=== PATIENT | female | born 1975 | race Caucasian/White ===

== ENCOUNTER 2017-12-30 07:18 | Emergency (ER) | payer OTHER ==
--- NOTE | 2017-12-30 08:00 | ED ---
Back Pain - HPI Summary HPI Summary: CC: Low back pain, b/l leg pain, right arm pain HPI: 42 yo female having months of low back pain and diffuse joint pain. She is being evaluated by Dr Rosales, her PMD for this condition. Here today due to increased constant LBP and several days of worse b/l knee pain and new, intermittent rt leg and arm pain. No rt arm pain now. LBP constant, worse with movement. On Mobic and neurontin for this. The knees continue to hurt. They make grinding noises with movement. No recent locking. No recent injury. Yesterday had increased rt leg pain that spread to the rt arm. No neck pain. No fever. No chest/abd pain. No dysuria. NL BMs. - History of Current Complaint Chief Complaint: EDExtremityLower Stated Complaint: RT SIDE PAIN Time Seen by Provider: 12/30/17 07:32 Hx Obtained From: Patient Hx Last Menstrual Period: 07/30/14 Onset/Duration: Other - See HPI Onset/Duration: Still Present Timing: Lasting Weeks Back Pain Location: Is Discrete @ - Lumbar Severity Currently: Moderate Pain Intensity: 8 Aggravating Symptom(s): Movement, Lifting, Bending, Walking Associated Signs And Symptoms: Positive: Pain with Weight Bearing. Negative: Swelling, Redness, Bruising, Fever, Weakness, Numbness, Tingling, Abdominal Pain , Flank Pain, Bladder Incontinence, Bowel Incontinence, Weight Loss - Risk Factors Cauda Equina Risk Factors: Negative Epidural Abscess Risk Factors: Negative - Allergies/Home Medications Allergies/Adverse Reactions: Allergies Allergy/AdvReac Type Severity Reaction Status Date / Time acetaminophen [From Percocet] Allergy Hives/Diff. Verified 12/30/17 07:26 Breathing/I tching amoxicillin [From Augmentin] Allergy Hives/Diff. Verified 12/30/17 07:26 Breathing/I tching cephalexin [From Keflex] Allergy Hives/Diff. Verified 12/30/17 07:26 Breathing/I tching clavulanic acid Allergy Hives/Diff. Verified 12/30/17 07:26 [From Augmentin] Breathing/I tching erythromycin base Allergy Hives/Diff. Verified 12/30/17 07:26 Breathing/I tching latex Allergy Rash Verified 12/30/17 07:26 levofloxacin [From Levaquin] Allergy Swelling Verified 12/30/17 07:26 Of Face,Lips,& Throat oxycodone [From Percocet] Allergy Hives/Diff. Verified 12/30/17 07:26 Breathing/I tching Penicillins Allergy Hives/Diff. Verified 12/30/17 07:26 Breathing/I tching PMH/Surg Hx/FS Hx/Imm Hx Previously Healthy: No - See HPI Endocrine/Hematology History: Denies: Hx Diabetes, Hx Thyroid Disease Cardiovascular History: Denies: Hx Angina, Hx Cardiomegaly, Hx Congestive Heart Failure, Hx Coronary Artery Disease, Hx Hypertension, Hx Pacemaker/ICD, Hx Peripheral Vascular Disease, Hx Rheumatic Fever, Hx Valvular Heart Disease, Other Cardiovascular Problems/Disorders Respiratory History: Reports: Hx Asthma Denies: Hx Chronic Obstructive Pulmonary Disease (COPD), Hx Pulmonary Edema, Hx Pulmonary Embolism, Hx Sleep Apnea, Other Respiratory Problems/Disorders GI History: Reports: Hx Gastroesophageal Reflux Disease Denies: Hx Ulcer History: Reports: Hx Kidney Stones Denies: Hx Renal Disease Musculoskeletal History: Denies: Hx Arthritis, Hx Rheumatoid Arthritis, Hx Bursitis, Hx Osteoporosis, Hx Tendonitis, Other Musculoskeletal History Sensory History: Denies: Hx Contacts or Glasses, Hx Hearing Aid Opthamlomology History: Denies: Hx Contacts or Glasses Neurological History: Reports: Hx Migraine Denies: Other Neuro Impairments/Disorders Psychiatric History: Denies: Hx Panic Disorder - Surgical History Surgery Procedure, Year, and Place: ulnar nerve repair right arm, kidney stone stent, and removal of stent. UTERINE ABLASION/TUBAL LIGATION 03/30/15 Hx Anesthesia Reactions: No - PATIENT STATES THAT SHE "WOKE UP DURING ULNAR NERVE PROCEDURE" Infectious Disease History: No Infectious Disease History: Denies: Hx Clostridium Difficile, Hx Hepatitis, Hx Human Immunodeficiency Virus (HIV), Hx of Known/Suspected MRSA, Hx Shingles, Hx Tuberculosis, Hx Known/ Suspected VRE, Hx Known/Suspected VRSA, History Other Infectious Disease, Traveled Outside the [place] in Last 30 Days - Family History Known Family History: Negative: Cardiac Disease, Hypertension - Social History Alcohol Use: None Alcohol Amount: DRINKS ONE DRINK MAYBE ON THE HOLIDAYS Substance Use Type: Reports: None Smoking Status (MU): Never Smoked Tobacco Review of Systems Constitutional: Negative Eyes: Negative ENT: Negative Cardiovascular: Negative Respiratory: Negative Gastrointestinal: Negative Genitourinary: Negative Positive: Arthralgia Skin: Negative Neurological: Negative Psychological: Normal All Other Systems Reviewed And Are Negative: Yes Physical Exam Triage Information Reviewed: Yes Vital Signs On Initial Exam: Initial Vitals Temp Pulse Resp BP Pulse Ox 96.8 F 90 16 142/96 100 12/30/17 07:21 12/30/17 07:21 12/30/17 07:21 12/30/17 07:21 12/30/17 07:21 Vital Signs Reviewed: Yes Appearance: Positive: Well-Appearing Skin: Positive: Warm Head/Face: Positive: Normal Head/Face Inspection Eyes: Positive: Normal, EOMI, ANDRE ENT: Positive: Normal ENT inspection Neck: Positive: Supple, Nontender Respiratory/Lung Sounds: Positive: Clear to Auscultation, Breath Sounds Present Cardiovascular: Positive: Normal, RRR Abdomen Description: Positive: Nontender, Soft. Negative: CVA Tenderness (R), CVA Tenderness (L) Bowel Sounds: Positive: Present Musculoskeletal: Positive: Other - Tender to palpation low back. The neck and thoracic back are non tender. Both knees: stable to exam, Negative McMurrays and Lachmans, No swelling, No erythema, No calor. There is grinding under the knee caps with flexion/extension. No locking. Neurological: Positive: Normal, Sensory/Motor Intact, Alert, Oriented to Person Place, Time Psychiatric: Positive: Normal AVPU Assessment: Alert - [place] Coma Scale Best Eye Response: 4 - Spontaneous Best Motor Response: 6 - Obeys Commands Best Verbal Response: 5 - Oriented Coma Scale Total: 15 Diagnostics - Vital Signs Vital Signs Temp Pulse Resp BP Pulse Ox 12/30/17 07:21 96.8 F 90 16 142/96 100 - Laboratory Lab Statement: Any lab studies that have been ordered have been reviewed, and results considered in the medical decision making process. - Radiology Accession Number: [id number] Radiology Interpretation Completed By: Radiologist Order Information: VL LOWER EXT VEINS RIGHT Radiology Interpretation Completed By: Radiologist Back Pain Course/Dx - Course Course Of Treatment: Discussed results with the patient. Patient has MRI of Lumbar spine scheduled with PMD. Arthritis labs/workup being undertaken by PMD. Rx flexeril. F/U PMD. - Diagnoses Provider Diagnoses: Knee pain, bilateral, Low back pain Discharge - Sign-Out/Discharge Documenting (check all that apply): Discharge/Admit/Transfer - Discharge Plan Condition: Stable Disposition: HOME Prescriptions: Cyclobenzaprine TAB* [Flexeril 10 MG TAB*] 10 mg PO TID PRN #15 tab MDD 3 PRN Reason: Pain Patient Education Materials: Knee Pain (ED), Chronic Back Pain (ED) Referrals: Jb Rollins MD [Primary Care Provider] - Additional Instructions: FOLLOW UP WITH YOUR DOCTOR. GET RECHECKED FOR ANY WORSENING OF YOUR CONDITION OR QUESTIONS OR CONCERNS. - Billing Disposition and Condition Condition: STABLE Disposition: Home
--- NOTE | 2017-12-30 08:43 | RAD ---
Indication: Bilateral knee pain. AP standing view, tunnel, patellofemoral and lateral views of the knees were obtained. The right knee demonstrates joint spaces to be well preserved. No joint effusion is noted in the right knee. Patellofemoral joint is unremarkable. The left knee demonstrates mild joint space narrowing in the medial compartment with suggestion of a small joint effusion. IMPRESSION: Mild degenerative changes medial compartment left knee with a small joint effusion.
--- NOTE | 2017-12-30 09:49 | RAD ---
Indication: Right leg pain. Duplex Doppler sonography of the deep venous system of the right lower extremity deep venous system was performed. Bilaterally the common femoral veins appear patent and compressible. Right proximal greater saphenous vein, proximal deep femoral vein, femoral vein, popliteal vein, posterior tibial veins and peroneal veins appear patent and compressible. IMPRESSION: NO EVIDENCE OF DEEP VENOUS THROMBOSIS IS IDENTIFIED.
[2017-12-30] MEDS ORDERED: Ketorolac INJ* 60 MG/2 ML VIAL IM ONE (10:00)
[2017-12-30 10:17] VITALS: BP 127/98
== END 2017-12-30 10:15 | disposition home or self-care (01) ==
LOC: ED 07:18
DX: M54.5 Low back pain (principal); M25.562 Pain in left knee; M25.561 Pain in right knee; M79.604 Pain in right leg; M17.12 Unilateral primary osteoarthritis, left knee; Z88.3 Allergy status to other anti-infective agents; Z88.8 Allergy status to other drugs, medicaments and biological substances; Z88.0 Allergy status to penicillin; Z88.5 Allergy status to narcotic agent
CPT/HCPCS: 96372; 99282; J1885

== ENCOUNTER 2018-02-10 14:49 | Emergency (ER) | payer OTHER ==
[2018-02-10] MEDS ORDERED: Lidocaine 2% VISCOUS* 15 ML UDC PO ONE ×2 (18:47→20:02)
--- NOTE | 2018-02-10 20:06 | ED ---
Throat Pain/Nasal Congestion - HPI Summary HPI Summary: Patient complains of sensation of foreign body in her throat since starting Augmentin for strep throat this past . Patient states she believes she has pill stuck in her throat, and causes pain while eating, drinking, swallowing. Patient states she has been eating but in decreased amounts. Tolerating her oral fluids and external fluids. Denies fever, cough, CP, SOB, N /V/D, abdominal pain, change in urinary BM. Medical history is GERD, migraines , arthritis, IBS. States recent endoscopy by GI for GERD 2 weeks ago. - History of Current Complaint Chief Complaint: EDForeignBodyEsophag Time Seen by Provider: 02/10/18 18:12 Hx Obtained From: Patient Onset/Duration: Sudden Onset Severity: Moderate Associated Signs And Symptoms: Positive: FB Sensation. Negative: Drooling Cough: None - Epiglottits Risk Factors Epiglottis Risk Factors: Sudden Onset - Allergies/Home Medications Allergies/Adverse Reactions: Allergies Allergy/AdvReac Type Severity Reaction Status Date / Time amoxicillin [From Augmentin] Allergy Hives/Diff. Verified 02/10/18 18:29 Breathing/I tching cephalexin [From Keflex] Allergy Hives/Diff. Verified 02/10/18 18:29 Breathing/I tching clavulanic acid Allergy Hives/Diff. Verified 02/10/18 18:29 [From Augmentin] Breathing/I tching erythromycin base Allergy Hives/Diff. Verified 02/10/18 18:29 Breathing/I tching latex Allergy Rash Verified 02/10/18 18:29 levofloxacin [From Levaquin] Allergy Swelling Verified 02/10/18 18:29 Of Face,Lips,& Throat oxycodone [From Percocet] Allergy Hives/Diff. Verified 02/10/18 18:29 Breathing/I tching Penicillins Allergy Hives/Diff. Verified 02/10/18 18:29 Breathing/I tching Home Medications: Home Medications DOXYcycline CAP(*) [DOXYcycline 100MG CAP(*)] 100 mg PO BID 02/10/18 [History Confirmed 02/10/18] PMH/Surg Hx/FS Hx/Imm Hx Endocrine/Hematology History: Denies: Hx Diabetes, Hx Thyroid Disease Cardiovascular History: Denies: Hx Angina, Hx Cardiomegaly, Hx Congestive Heart Failure, Hx Coronary Artery Disease, Hx Hypertension, Hx Pacemaker/ICD, Hx Peripheral Vascular Disease, Hx Rheumatic Fever, Hx Valvular Heart Disease, Other Cardiovascular Problems/Disorders Respiratory History: Reports: Hx Asthma Denies: Hx Chronic Obstructive Pulmonary Disease (COPD), Hx Pulmonary Edema, Hx Pulmonary Embolism, Hx Sleep Apnea, Other Respiratory Problems/Disorders GI History: Reports: Hx Gastroesophageal Reflux Disease Denies: Hx Ulcer History: Reports: Hx Kidney Stones Denies: Hx Renal Disease Musculoskeletal History: Denies: Hx Arthritis, Hx Rheumatoid Arthritis, Hx Bursitis, Hx Osteoporosis, Hx Tendonitis, Other Musculoskeletal History Sensory History: Denies: Hx Contacts or Glasses, Hx Hearing Aid Opthamlomology History: Denies: Hx Contacts or Glasses Neurological History: Reports: Hx Migraine Denies: Other Neuro Impairments/Disorders Psychiatric History: Denies: Hx Panic Disorder - Surgical History Surgery Procedure, Year, and Place: ulnar nerve repair right arm, kidney stone stent, and removal of stent. UTERINE ABLASION/TUBAL LIGATION 03/30/15 Hx Anesthesia Reactions: No - PATIENT STATES THAT SHE "WOKE UP DURING ULNAR NERVE PROCEDURE" - Immunization History Immunizations Up to Date: Yes Infectious Disease History: No Infectious Disease History: Denies: Hx Clostridium Difficile, Hx Hepatitis, Hx Human Immunodeficiency Virus (HIV), Hx of Known/Suspected MRSA, Hx Shingles, Hx Tuberculosis, Hx Known/ Suspected VRE, Hx Known/Suspected VRSA, History Other Infectious Disease, Traveled Outside the [place] in Last 30 Days - Family History Known Family History: Negative: Cardiac Disease, Hypertension - Social History Alcohol Use: None Alcohol Amount: DRINKS ONE DRINK MAYBE ON THE [place] Substance Use Type: Reports: None Smoking Status (MU): Never Smoked Tobacco Review of Systems Constitutional: Negative Eyes: Negative Positive: Sore Throat Cardiovascular: Negative Respiratory: Negative Gastrointestinal: Negative Genitourinary: Negative Musculoskeletal: Negative Skin: Negative Neurological: Negative Psychological: Normal All Other Systems Reviewed And Are Negative: Yes Physical Exam - Summary Physical Exam Summary: Normal ENT exam. Triage Information Reviewed: Yes Vital Signs On Initial Exam: Initial Vitals Temp Pulse Resp BP Pulse Ox 97.3 F 96 16 140/97 98 02/10/18 15:02 02/10/18 15:02 02/10/18 15:02 02/10/18 15:02 02/10/18 15:02 Vital Signs Reviewed: Yes Appearance: Positive: Well-Appearing Skin: Positive: Warm Head/Face: Positive: Normal Head/Face Inspection Eyes: Positive: Normal ENT: Positive: Normal ENT inspection Neck: Positive: Supple Respiratory/Lung Sounds: Positive: Clear to Auscultation Cardiovascular: Positive: Normal Abdomen Description: Positive: Nontender Musculoskeletal: Positive: Normal Neurological: Positive: Normal Psychiatric: Positive: Normal AVPU Assessment: Alert Diagnostics - Vital Signs Vital Signs Temp Pulse Resp BP Pulse Ox 02/10/18 16:45 98.6 F 79 16 125/86 100 02/10/18 15:02 97.3 F 96 16 140/97 98 - Laboratory Lab Statement: Any lab studies that have been ordered have been reviewed, and results considered in the medical decision making process. EENT Course/Dx - Course Course Of Treatment: Patient complains of sensation of foreign body in her throat since starting Augmentin for strep throat this past . Patient states she believes she has pill stuck in her throat, and causes pain while eating, drinking, swallowing. Patient states she has been eating but in decreased amounts. Tolerating her oral fluids and external fluids. Denies fever, cough, CP, SOB, N/V/D, abdominal pain, change in urinary BM. Medical history is GERD, migraines, arthritis, IBS. States recent endoscopy by GI for GERD 2 weeks ago. Physical exam:Normal ENT exam. Discussed patient with Dr. Plata who recommended viscous lidocaine and discharged home with GI follow-up. Patient able to drink water and viscous lidocaine here in the ED. patient significantly improved with viscous lidocaine. Physical exam normal. Vital signs normal. Currently on doxycycline for strep throat. Continue antibiotics. Rx for lidocaine viscus. Follow up with GI if symptoms continue. Patient has existing GI provider for GERD. History of Recent endoscopy for same 2 weeks ago. - Diagnoses Provider Diagnoses: Esophagitis Discharge - Sign-Out/Discharge Documenting (check all that apply): Patient Departure - Discharge Plan Condition: Stable Disposition: HOME Prescriptions: Lidocaine 2% VISCOUS* [Xylocaine 2% Viscous*] 15 ml SWISH SPIT Q6H PRN #1 btl PRN Reason: Pain Patient Education Materials: Esophagitis (ED) Referrals: Jb Rollins MD [Primary Care Provider] - Additional Instructions: Follow-up with your GI doctor for further evaluation. Return to the ED for any new or worsening symptoms - Billing Disposition and Condition Condition: STABLE Disposition: Home
[2018-02-10 20:32] VITALS: BP 136/90
== END 2018-02-10 20:29 | disposition home or self-care (01) ==
LOC: ED 14:49
DX: K20.9 Esophagitis, unspecified (principal); Z88.5 Allergy status to narcotic agent; Z88.0 Allergy status to penicillin; Z88.1 Allergy status to other antibiotic agents; Z91.040 Latex allergy status
CPT/HCPCS: 99282